=== PATIENT | male | born 1945 | race Caucasian/White ===

== ENCOUNTER 2019-01-07 21:40 | Inpatient (IN) | payer MEDICARE, OTHER ==
[~2019-01-07] VITALS: Ht 170.2 cm; Wt 54.4 kg
[~2019-01-07 21:40] MED LIST: CALCIUM CHLORIDE 1,000 MG/10 ML DISP.SYRIN ONE; EPINEPHrine SYRINGE 1 MG/10 ML SYRINGE ONE; SODIUM BICARB ADULT 8.4% 50 MEQ/50 ML DISP.SYRIN. ONE
[2019-01-07] MEDS ORDERED: MORPHINE SULFATE 10 MG/ML VIAL. IV ONE (22:15)
[2019-01-07 22:16] LABS: BASO # 0.1 x10^3/uL (0.0-0.2); BASO % 0 % (0-3); EOS # 0.1 x10^3/uL (0.0-0.7); EOS % 1 % (0-3); HEMATOCRIT 31.5 % (39.0-53.0); HEMOGLOBIN 10.6 g/dL (13.0-17.5); LYMPH # 0.8 x10^3/uL (1.0-4.8); LYMPH % 5 % (24-48); MEAN CORPUSCULAR HEMOGLOBIN 34 pg (25-35); MEAN CORPUSCULAR HGB CONC 34 g/dL (31-37); MEAN CORPUSCULAR VOLUME 100 fL (79-100); MONO # 1.1 x10^3/uL (0.0-1.1); MONO % 7 % (0-9); NEUT # 13.5 x10^3/uL (1.8-7.7); NEUT % 86 % (31-73); PLATELET COUNT 219 x10^3/uL (140-400); RED BLOOD COUNT 3.14 x10^6/uL (4.30-5.70); RED CELL DISTRIBUTION WIDTH 12.4 % (11.5-14.5); WHITE BLOOD COUNT 15.7 x10^3/uL (4.0-11.0)
[2019-01-07 22:25] LABS: CALCIUM 8.7 mg/dL (8.5-10.1); CREATININE 0.6 mg/dL (0.7-1.3); GFR 131.7; POTASSIUM 4.3 mmol/L (3.5-5.1)
[2019-01-07 22:26] LABS: PROTHROMBIN TIME PATIENT 13.6 SEC (11.7-14.0)
[2019-01-07 22:31] LABS: ALBUMIN 3.6 g/dL (3.4-5.0); ALBUMIN/GLOBULIN RATIO 0.9 (1.0-1.7); TOTAL BILIRUBIN 0.4 mg/dL (0.2-1.0); TOTAL PROTEIN 7.8 g/dL (6.4-8.2)
--- NOTE | 2019-01-07 22:36 | RAD ---
Exam: Chest one view INDICATION: Fall TECHNIQUE: Frontal view of the chest Comparisons: None FINDINGS: The cardiomediastinal silhouette and pulmonary vessels are within normal limits. The lung and pleural spaces are clear. IMPRESSION: No acute cardiopulmonary process. Electronically signed by: Krysta Weber MD (01/07/2019 10:33 PM) [facility]
--- NOTE | 2019-01-07 22:38 | RAD ---
Exam: Right shoulder 3 views INDICATION: Fall TECHNIQUE: Frontal view of the right shoulder with internal and external rotation with transscapular Y view. Comparisons: None FINDINGS: Bone mineralization is normal. No acute or healed fractures. Soft tissues are unremarkable. Joint spaces are well-maintained. IMPRESSION: No acute osseous abnormality. Electronically signed by: Krysta Weber MD (01/07/2019 10:35 PM) [facility]
--- NOTE | 2019-01-07 22:39 | RAD ---
Exam: Right hip 2 views with pelvis INDICATION: Fall TECHNIQUE: Frontal view of the pelvis with frog-leg lateral view of the right hip Comparisons: None FINDINGS: There is a obliquely oriented fracture through the proximal right femoral diaphysis. Diffuse osteopenia. Joint spaces are well-maintained. Soft tissues are unremarkable. IMPRESSION: Obliquely oriented fracture through the proximal right femoral diaphysis. Electronically signed by: Krysta Weber MD (01/07/2019 10:36 PM) [facility]
[2019-01-07 22:43] LABS: % BANDS 4 % (0-9); % BASOS 2 % (0-3); % LYMPHS 8 % (24-48); % MONOS 9 % (0-10); % SEGS 77 % (35-66); PLATELET CLUMP PRESENT; PLT ESTIMATE ADEQUATE (ADEQUATE); TOXIC VACUOLATION SLIGHT
--- NOTE | 2019-01-07 23:03 | PHYS DOC ---
Past Medical History Past Medical History: COPD, Hypertension (AGNES HINTON APRN) Past Surgical History: Other Additional Past Surgical Histo: UNKNOWN (AGNES HINTON APRN) Alcohol Use: Occasionally Drug Use: None (AGNES HINTON APRN) Attending Signature I have participated in the care of this patient and I have reviewed and agree with all pertinent clinical information above including history, exam, and recommendations. (RAMON VAZQUEZ MD) Adult General Chief Complaint Chief Complaint: MECHANICAL FALL HPI HPI Patient is a 73 year old male with history of COPD and oxygen 2 L, hypertension, who presents today complaining of moderate pain to the right hip that began after he fell down. Family reports he was playing to walk down some steps when he fell. Patient denies any loss of consciousness. Denies hitting his head on the ground. He describes the pain as sharp and constant worse on touching or moving his right lower extremity. (AGNES HINTON APRN) Review of Systems Review of Systems Constitutional: Denies fever or chills [] Eyes: Denies change in visual acuity, redness, or eye pain [] HENT: Denies nasal congestion or sore throat [] Respiratory: Denies cough or shortness of breath [] Cardiovascular: No additional information not addressed in HPI [] GI: Denies abdominal pain, nausea, vomiting, bloody stools or diarrhea [] : Denies dysuria or hematuria [] Musculoskeletal: Reports right hip pain Integument: Denies rash or skin lesions [] Neurologic: Denies headache, focal weakness or sensory changes [] All other systems were reviewed and found to be within normal limits, except as documented in this note. (AGNES HINTON APRN) Current Medications Current Medications Current Medications Medications (Trade) Dose Ordered Sig/Cecille Start Time Stop Time Status Last Admin Dose Admin Morphine Sulfate (Morphine Sulfate) 5 mg 1X ONCE 01/07/19 22:15 01/07/19 22:16 DC 01/07/19 22:31 5 MG (RAMON VAZQUEZ MD) Allergies Allergies Allergies Coded Allergies Type Severity Reaction Last Updated Verified Penicillins Allergy Unknown 01/07/19 Yes peach Allergy Unknown 01/07/19 Yes walnut Allergy Unknown 01/07/19 Yes (RAMON VAZQUEZ MD) Physical Exam Physical Exam Constitutional: Thin appearing patient in no acute distress, non-toxic appearance. [] HENT: Normocephalic, bilateral external ears normal, oropharynx moist, no oral exudates, nose normal. [] Eyes: PERRLA, EOMI, conjunctiva normal, no discharge. [] Neck: Normal range of motion, no tenderness, supple, no stridor. [] Cardiovascular:Heart rate regular rhythm, no murmur [] Lungs & Thorax: Oxygen 2 L on. Bilateral breath sounds clear to auscultation [] Abdomen: Bowel sounds normal, soft, no tenderness, no masses, no pulsatile mas ses. [] Skin: Warm, dry, no erythema, no rash. [] Back: No tenderness, no CVA tenderness. [] Extremities: Right hip is obviously deformed, the right leg is shortened, there is tenderness on palpation of the right proximal hip. Limited range of motion to the right hip due to pain. Full range of motion to the right toes. +2 right pedal pulse. Cap refill less than 2 seconds the right toes. Neurologic: Alert and oriented X 3, normal motor function, normal sensory function, no focal deficits noted. [] Psychologic: Affect normal, judgement normal, mood normal. [] (AGNES HINTON APRN) Current Patient Data Vital Signs Vital Signs Date Time Temp Pulse Resp B/P (MAP) Pulse Ox O2 Delivery O2 Flow Rate FiO2 01/07/19 22:53 106 18 97 01/07/19 22:31 Nasal Cannula 01/07/19 21:42 98.4 123/57 (79) 98.4 (RAMON VAZQUEZ MD) Lab Values Laboratory Tests Test 01/07/19 22:07 White Blood Count 15.7 x10^3/uL (4.0-11.0) H Red Blood Count 3.14 x10^6/uL (4.30-5.70) L Hemoglobin 10.6 g/dL (13.0-17.5) L Hematocrit 31.5 % (39.0-53.0) L Mean Corpuscular Volume 100 fL (79-100) Mean Corpuscular Hemoglobin 34 pg (25-35) Mean Corpuscular Hemoglobin Concent 34 g/dL (31-37) Red Cell Distribution Width 12.4 % (11.5-14.5) Platelet Count 219 x10^3/uL (140-400) Neutrophils (%) (Auto) 86 % (31-73) H Lymphocytes (%) (Auto) 5 % (24-48) L Monocytes (%) (Auto) 7 % (0-9) Eosinophils (%) (Auto) 1 % (0-3) Basophils (%) (Auto) 0 % (0-3) Neutrophils # (Auto) 13.5 x10^3/uL (1.8-7.7) H Lymphocytes # (Auto) 0.8 x10^3/uL (1.0-4.8) L Monocytes # (Auto) 1.1 x10^3/uL (0.0-1.1) Eosinophils # (Auto) 0.1 x10^3/uL (0.0-0.7) Basophils # (Auto) 0.1 x10^3/uL (0.0-0.2) Segmented Neutrophils % 77 % (35-66) H Band Neutrophils % 4 % (0-9) Lymphocytes % 8 % (24-48) L Monocytes % 9 % (0-10) Basophils % 2 % (0-3) Toxic Vacuolation Slight Platelet Estimate Adequate (ADEQUATE) Platelet Clumps, EDTA Present Prothrombin Time 13.6 SEC (11.7-14.0) Prothrombin Time INR 1.1 (0.8-1.1) Activated Partial Thromboplast Time 31 SEC (24-38) Sodium Level 134 mmol/L (136-145) L Potassium Level 4.3 mmol/L (3.5-5.1) Chloride Level 95 mmol/L (98-107) L Carbon Dioxide Level 30 mmol/L (21-32) Anion Gap 9 (6-14) Blood Urea Nitrogen 8 mg/dL (8-26) Creatinine 0.6 mg/dL (0.7-1.3) L Estimated GFR (Cockcroft-Gault) 131.7 BUN/Creatinine Ratio 13 (6-20) Glucose Level 118 mg/dL (70-99) H Calcium Level 8.7 mg/dL (8.5-10.1) Total Bilirubin 0.4 mg/dL (0.2-1.0) Aspartate Amino Transferase (AST) 21 U/L (15-37) Alanine Aminotransferase (ALT) 31 U/L (16-63) Alkaline Phosphatase 79 U/L (46-116) Total Protein 7.8 g/dL (6.4-8.2) Albumin 3.6 g/dL (3.4-5.0) Albumin/Globulin Ratio 0.9 (1.0-1.7) L Laboratory Tests 01/07/19 22:07 Laboratory Tests 01/07/19 22:07 (RAMON VAZQUEZ MD) EKG EKG [] (AGNES HINTON APRN) Radiology/Procedures Radiology/Procedures []PROCEDURE: CHEST AP ONLY Exam: Chest one view INDICATION: Fall TECHNIQUE: Frontal view of the chest Comparisons: None FINDINGS: The cardiomediastinal silhouette and pulmonary vessels are within normal limits. The lung and pleural spaces are clear. IMPRESSION: No acute cardiopulmonary process. Electronically signed by: Krysta Whitaker MD (01/07/2019 10:33 PM) [facility] DICTATED and SIGNED BY: KRYSTA WHITAKER MD DATE: 01/07/192232 PROCEDURE: SHOULDER 2+V RIGHT Exam: Right shoulder 3 views INDICATION: Fall TECHNIQUE: Frontal view of the right shoulder with internal and external rotation with transscapular Y view. Comparisons: None FINDINGS: Bone mineralization is normal. No acute or healed fractures. Soft tissues are unremarkable. Joint spaces are well-maintained. IMPRESSION: No acute osseous abnormality. Electronically signed by: Krysta Whitaker MD (01/07/2019 10:35 PM) [facility] DICTATED and SIGNED BY: KRYSTA WHITAKER MD DATE: 01/07/192234 PROCEDURE: HIP RIGHT 2V WITH PELVIS Exam: Right hip 2 views with pelvis INDICATION: Fall TECHNIQUE: Frontal view of the pelvis with frog-leg lateral view of the right hip Comparisons: None FINDINGS: There is a obliquely oriented fracture through the proximal right femoral diaphysis. Diffuse osteopenia. Joint spaces are well-maintained. Soft tissues are unremarkable. IMPRESSION: Obliquely oriented fracture through the proximal right femoral diaphysis. Electronically signed by: Krysta Whitaker MD (01/07/2019 10:36 PM) [facility] DICTATED and SIGNED BY: KRYSTA WHITAKER MD DATE: 01/07/192235 (AGNES HINTON APRN) Course & Med Decision Making Course & Med Decision Making Pertinent Labs and Imaging studies reviewed. (See chart for details) This is a 73-year-old male patient presenting to the ED today with right hip pain status post falling couple minutes prior to coming to the ED. Right hip x- rays interpreted by radiologist were noted for-Obliquely oriented fracture through the proximal right femoral diaphysis. Spoke with Dr. Waller-he states patient will go through medical clearance tomorrow then hopefully have surgery the next day or 2 Patient was admitted under Dr. Vera, report will be given to him in the morning by Dr. Vazquez (AGNES HINTON APRN) Dragon Disclaimer Dragon Disclaimer This electronic medical record was generated, in whole or in part, using a voice recognition dictation system. (AGNES HINTON APRN) Departure Departure Impression: Primary Impression: Right femoral fracture Additional Impression: Fall Disposition: 09 ADMITTED INPATIENT Condition: STABLE Referrals: ABISAI LAURENT MD (PCP) Problem Qualifiers Primary Impression: Right femoral fracture Encounter type: initial encounter Femur location: proximal epiphysis Fracture type: closed Fracture alignment: nondisplaced Qualified Codes: S72.024A - Nondisplaced fracture of epiphysis (separation) (upper) of right femur, initial encounter for closed fracture Additional Impression: Fall Encounter type: initial encounter Qualified Codes: W19.XXXA - Unspecified fall, initial encounter AGNES HINTON APRN Jan 07, 2019 23:03 RAMON VAZQUEZ MD Jan 08, 2019 01:28
[2019-01-07] MEDS ORDERED: ONDANSETRON PF 4 MG/2 ML VIAL. IV PRN (23:30)
[2019-01-07] MEDS ORDERED: ACETAMINOPHEN 325 MG TABLET. PO PRN (23:30)
[2019-01-07 23:54] VITALS: BP 93/58
[2019-01-08] MEDS: MORPHINE SULFATE 4 MG/ML VIAL. IV PRN ×2 (00:26→09:56)
[2019-01-08 03:00] VITALS: BP 100/51
--- NOTE | 2019-01-08 03:33 | NUR ---
The patient, JOHN PAUL WILDER, 73 y/o, M admitted by NIMA ALLRED MD, was given written information regarding hospital policies, unit procedures and contact persons. Valuables were checked and admission questions answered by patient/spouse. Patient does not have current medication list- spouse asked to bring medications from home in order to update home medication list. Verbalized understanding. Currently uses [facility].
[2019-01-08 04:47] LABS: BASO % 0 % (0-3); EOS % 0 % (0-3); HEMATOCRIT 26.9 % (39.0-53.0); HEMOGLOBIN 9.1 g/dL (13.0-17.5); LYMPH # 0.6 x10^3/uL (1.0-4.8); LYMPH % 4 % (24-48); MEAN CORPUSCULAR HEMOGLOBIN 34 pg (25-35); MEAN CORPUSCULAR HGB CONC 34 g/dL (31-37); MEAN CORPUSCULAR VOLUME 101 fL (79-100); MONO # 1.3 x10^3/uL (0.0-1.1); MONO % 8 % (0-9); NEUT # 15.2 x10^3/uL (1.8-7.7); NEUT % 89 % (31-73); PLATELET COUNT 258 x10^3/uL (140-400); RED BLOOD COUNT 2.67 x10^6/uL (4.30-5.70); RED CELL DISTRIBUTION WIDTH 12.1 % (11.5-14.5); WHITE BLOOD COUNT 17.2 x10^3/uL (4.0-11.0)
[2019-01-08 05:03] LABS: CREATININE 1.4 mg/dL (0.7-1.3); GFR 49.5; POTASSIUM 5.1 mmol/L (3.5-5.1)
[2019-01-08 07:00] VITALS: BP 110/63
--- NOTE | 2019-01-08 08:02 | NUR ---
Pt daughter informed that he is an avid beer drinker. Discreetness is requested. P drinks approximately 8 beers a day, according to daughter. That taken into account prior to surgery.
[2019-01-08] MEDS ORDERED: oxyCODONE/APAP 5/325 1 TAB TABLET PO PRN (08:45)
--- NOTE | 2019-01-08 08:54 | PDOC1 ---
History and Physical Date of Admission Date of Admission DATE: 01/08/19 TIME: 08:51 Source Source: Chart review, Patient History of Present Illness History of Present Illness Mr. Nesbitt, is a 73 year old male admit with hip pain, he fell in his garage last night, this AM, he feels his pain is much better, and he has no complaint currently. pain last night was moderate, 7/10. 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 Past Medical History Cardiovascular: HTN Pulmonary: COPD GI: No pertinent hx Heme/Onc: No pertinent hx Endocrine: No pertinent hx Dermatology: No pertinent hx Family History Family History: No Significant, Heart Disease Social History Smoke: Quit ALCOHOL: heavy Drugs: None Current Problem List Problem List Problems Medical Problems: (1) Fall Status: Acute (2) Right femoral fracture Status: Acute Current Medications Current Medications Current Medications Morphine Sulfate (Morphine Sulfate) 5 mg 1X ONCE IV Last administered on 01/07/19at 22:31; Start 01/07/19 at 22:15; Stop 01/07/19 at 22:16; Status DC Ondansetron HCl (Zofran) 4 mg PRN Q8HRS PRN IV NAUSEA/VOMITING Last administered on 01/08/19at 08:42; Start 01/07/19 at 23:30; Stop 01/08/19 at 23:29 Morphine Sulfate (Morphine Sulfate) 4 mg PRN Q2HR PRN IV PAIN Last administered on 01/08/19at 00:26; Start 01/07/19 at 23:30; Stop 01/08/19 at 23:29 Acetaminophen (Tylenol) 650 mg PRN Q4HRS PRN PO FEVER; Start 01/07/19 at 23:30; Stop 01/08/19 at 23:29 Sodium Chloride 1,000 ml @ 100 mls/hr 1X ONCE IV Last administered on 01/08/19at 08:44; Start 01/08/19 at 09:00; Stop 01/08/19 at 18:59 Sodium Chloride 500 ml @ 500 mls/hr 1X ONCE IV ; Start 01/08/19 at 09:00; Stop 01/08/19 at 09:59; Status Cancel Multivitamins 10 ml/Thiamine HCl 100 mg/Folic Acid 1 mg/Sodium Chloride 1,011.2 ml @ 1,000.088 mls/hr 1X ONCE IV ; Start 01/08/19 at 09:00; Stop 01/08/19 at 10:00 Folic Acid (Folic Acid) 1 mg DAILY PO ; Start 01/09/19 at 09:00 Thiamine Mononitrate (Vitamin B-1) 100 mg DAILY PO ; Start 01/09/19 at 09:00 Lorazepam (Ativan Inj) 2 mg PRN Q1HR PRN IV For CIWA 8-14; Start 01/08/19 at 09:00 Lorazepam (Ativan Inj) 4 mg PRN Q1HR PRN IV For CIWA 15 or greater; Start 01/08/19 at 09:00 Albuterol/ Ipratropium (Duoneb) 3 ml RTQID NEB ; Start 01/08/19 at 09:00 Albuterol Sulfate (Ventolin Neb Soln) 2.5 mg PRN QID PRN NEB SHORTNESS OF BREATH; Start 01/08/19 at 09:00 Oxycodone/ Acetaminophen (Percocet 5/325) 1 tab PRN Q4HRS PRN PO PAIN; Start 01/08/19 at 08:45 Allergies Allergies: Coded Allergies: Penicillins (Verified Allergy, Unknown, 01/07/19) peach (Verified Allergy, Unknown, 01/07/19) walnut (Verified Allergy, Unknown, 01/07/19) ROS General: No: Chills, Night Sweats, Fatigue, Malaise, Appetite, Other PSYCHOLOGICAL ROS: YES: Sleep disturbances; No: Anxiety, Behavioral Disorder, Concentration difficultie, Decreased libido, Depression, Disorientation, Hallucinations, Hostility, Irritablity, Memory difficulties, Mood Swings, Obsessive thoughts, Other Eyes: No Blurry vision, No Decreased vision, No Double vision, No Dry eyes, No Excessive tearing, No Eye Pain, No Itchy Eyes, No Loss of vision, No Photophobia, No Scotomata, No Uses contacts, No Uses glasses, No Other HEENT: No: Heacaches, Visual Changes, Hearing change, Nasal congestion, Nasal discharge, Oral lesions, Sinus pain, Sore Throat, Epistaxis, Sneezing, Snoring, Tinnitus, Vertigo, Vocal changes, Other Respiratory: YES: SOB with excertion; No: Cough, Hemoptysis, Orthopnea, Pleuritic Pain, Shortness of breath, Sputum Changes, Stridor, Tachypnea, Wheezing, Other Cardiovascular: No Chest Pain, No Palpitations, No Orthopnea, No Paroxysmal Noc. Dyspnea, No Edema, No Lt Headedness, No Other Gastrointestinal: Yes Nausea; No Vomiting, No Abdominal Pain, No Diarrhea, No Constipation, No Melena, No Hematochezia, No Other Genitourinary: No Dysuria, No Frequency, No Incontinence, No Hematuria, No Retention, No Discharge, No Urgency, No Pain, No Flank Pain, No Other, No , No , No , No , No , No , No Musculoskeletal: Yes Joint Pain, Yes Joint Stiffness Neurological: No Behavorial Changes, No Bowel/Bladder ControlChng, No Confusion, No Dizziness, No Gait Disturbance, No Headaches, No Impaired Coord/balance, No Memory Loss, No Numbness/Tingling, No Seizures, No Speech Problems, No Tremors, No Visual Changes, No Weakness, No Other Skin: Yes Dry Skin; No Eczema, No Hair Changes, No Lumps, No Mole Changes, No Mottling, No Nail Changes, No Pruritus, No Rash, No Skin Lesion Changes, No Other, No Acne Physical Exam Physical Exam very thin and frail appearance, muscle wasting of arms and hands General: Alert, Oriented X3, Cooperative, No acute distress HEENT: Atraumatic, PERRLA, Mucous membr. moist/pink Lungs: Normal air movement Abdomen: Normal bowel sounds, Soft Extremities: No clubbing, Normal pulses Neuro: Sensation intact Psych/Mental Status: Mood NL Vitals Vitals Vital Signs Date Time Temp Pulse Resp B/P (MAP) Pulse Ox O2 Delivery O2 Flow Rate FiO2 01/08/19 03:38 Nasal Cannula 4.0 01/08/19 03:00 97.7 111 18 100/51 (67) 99 97.7 Labs Labs Laboratory Tests Test 01/07/19 22:07 01/08/19 04:00 White Blood Count 15.7 x10^3/uL (4.0-11.0) 17.2 x10^3/uL (4.0-11.0) Red Blood Count 3.14 x10^6/uL (4.30-5.70) 2.67 x10^6/uL (4.30-5.70) Hemoglobin 10.6 g/dL (13.0-17.5) 9.1 g/dL (13.0-17.5) Hematocrit 31.5 % (39.0-53.0) 26.9 % (39.0-53.0) Mean Corpuscular Volume 100 fL (79-100) 101 fL (79-100) Mean Corpuscular Hemoglobin 34 pg (25-35) 34 pg (25-35) Mean Corpuscular Hemoglobin Concent 34 g/dL (31-37) 34 g/dL (31-37) Red Cell Distribution Width 12.4 % (11.5-14.5) 12.1 % (11.5-14.5) Platelet Count 219 x10^3/uL (140-400) 258 x10^3/uL (140-400) Neutrophils (%) (Auto) 86 % (31-73) 89 % (31-73) Lymphocytes (%) (Auto) 5 % (24-48) 4 % (24-48) Monocytes (%) (Auto) 7 % (0-9) 8 % (0-9) Eosinophils (%) (Auto) 1 % (0-3) 0 % (0-3) Basophils (%) (Auto) 0 % (0-3) 0 % (0-3) Neutrophils # (Auto) 13.5 x10^3/uL (1.8-7.7) 15.2 x10^3/uL (1.8-7.7) Lymphocytes # (Auto) 0.8 x10^3/uL (1.0-4.8) 0.6 x10^3/uL (1.0-4.8) Monocytes # (Auto) 1.1 x10^3/uL (0.0-1.1) 1.3 x10^3/uL (0.0-1.1) Eosinophils # (Auto) 0.1 x10^3/uL (0.0-0.7) 0.0 x10^3/uL (0.0-0.7) Basophils # (Auto) 0.1 x10^3/uL (0.0-0.2) 0.0 x10^3/uL (0.0-0.2) Segmented Neutrophils % 77 % (35-66) Band Neutrophils % 4 % (0-9) Lymphocytes % 8 % (24-48) Monocytes % 9 % (0-10) Basophils % 2 % (0-3) Toxic Vacuolation Slight Platelet Estimate Adequate (ADEQUATE) Platelet Clumps, EDTA Present Prothrombin Time 13.6 SEC (11.7-14.0) Prothromb Time International Ratio 1.1 (0.8-1.1) Activated Partial Thromboplast Time 31 SEC (24-38) Sodium Level 134 mmol/L (136-145) 135 mmol/L (136-145) Potassium Level 4.3 mmol/L (3.5-5.1) 5.1 mmol/L (3.5-5.1) Chloride Level 95 mmol/L (98-107) 97 mmol/L (98-107) Carbon Dioxide Level 30 mmol/L (21-32) 27 mmol/L (21-32) Anion Gap 9 (6-14) 11 (6-14) Blood Urea Nitrogen 8 mg/dL (8-26) 12 mg/dL (8-26) Creatinine 0.6 mg/dL (0.7-1.3) 1.4 mg/dL (0.7-1.3) Estimated GFR (Cockcroft-Gault) 131.7 49.5 BUN/Creatinine Ratio 13 (6-20) Glucose Level 118 mg/dL (70-99) 101 mg/dL (70-99) Calcium Level 8.7 mg/dL (8.5-10.1) 9.0 mg/dL (8.5-10.1) Total Bilirubin 0.4 mg/dL (0.2-1.0) Aspartate Amino Transf (AST/SGOT) 21 U/L (15-37) Alanine Aminotransferase (ALT/SGPT) 31 U/L (16-63) Alkaline Phosphatase 79 U/L (46-116) Total Protein 7.8 g/dL (6.4-8.2) Albumin 3.6 g/dL (3.4-5.0) Albumin/Globulin Ratio 0.9 (1.0-1.7) Laboratory Tests Test 01/07/19 22:07 01/08/19 04:00 White Blood Count 15.7 x10^3/uL (4.0-11.0) 17.2 x10^3/uL (4.0-11.0) Red Blood Count 3.14 x10^6/uL (4.30-5.70) 2.67 x10^6/uL (4.30-5.70) Hemoglobin 10.6 g/dL (13.0-17.5) 9.1 g/dL (13.0-17.5) Hematocrit 31.5 % (39.0-53.0) 26.9 % (39.0-53.0) Mean Corpuscular Volume 100 fL (79-100) 101 fL (79-100) Mean Corpuscular Hemoglobin 34 pg (25-35) 34 pg (25-35) Mean Corpuscular Hemoglobin Concent 34 g/dL (31-37) 34 g/dL (31-37) Red Cell Distribution Width 12.4 % (11.5-14.5) 12.1 % (11.5-14.5) Platelet Count 219 x10^3/uL (140-400) 258 x10^3/uL (140-400) Neutrophils (%) (Auto) 86 % (31-73) 89 % (31-73) Lymphocytes (%) (Auto) 5 % (24-48) 4 % (24-48) Monocytes (%) (Auto) 7 % (0-9) 8 % (0-9) Eosinophils (%) (Auto) 1 % (0-3) 0 % (0-3) Basophils (%) (Auto) 0 % (0-3) 0 % (0-3) Neutrophils # (Auto) 13.5 x10^3/uL (1.8-7.7) 15.2 x10^3/uL (1.8-7.7) Lymphocytes # (Auto) 0.8 x10^3/uL (1.0-4.8) 0.6 x10^3/uL (1.0-4.8) Monocytes # (Auto) 1.1 x10^3/uL (0.0-1.1) 1.3 x10^3/uL (0.0-1.1) Eosinophils # (Auto) 0.1 x10^3/uL (0.0-0.7) 0.0 x10^3/uL (0.0-0.7) Basophils # (Auto) 0.1 x10^3/uL (0.0-0.2) 0.0 x10^3/uL (0.0-0.2) Segmented Neutrophils % 77 % (35-66) Band Neutrophils % 4 % (0-9) Lymphocytes % 8 % (24-48) Monocytes % 9 % (0-10) Basophils % 2 % (0-3) Toxic Vacuolation Slight Platelet Estimate Adequate (ADEQUATE) Platelet Clumps, EDTA Present Prothrombin Time 13.6 SEC (11.7-14.0) Prothromb Time International Ratio 1.1 (0.8-1.1) Activated Partial Thromboplast Time 31 SEC (24-38) Sodium Level 134 mmol/L (136-145) 135 mmol/L (136-145) Potassium Level 4.3 mmol/L (3.5-5.1) 5.1 mmol/L (3.5-5.1) Chloride Level 95 mmol/L (98-107) 97 mmol/L (98-107) Carbon Dioxide Level 30 mmol/L (21-32) 27 mmol/L (21-32) Anion Gap 9 (6-14) 11 (6-14) Blood Urea Nitrogen 8 mg/dL (8-26) 12 mg/dL (8-26) Creatinine 0.6 mg/dL (0.7-1.3) 1.4 mg/dL (0.7-1.3) Estimated GFR (Cockcroft-Gault) 131.7 49.5 BUN/Creatinine Ratio 13 (6-20) Glucose Level 118 mg/dL (70-99) 101 mg/dL (70-99) Calcium Level 8.7 mg/dL (8.5-10.1) 9.0 mg/dL (8.5-10.1) Total Bilirubin 0.4 mg/dL (0.2-1.0) Aspartate Amino Transf (AST/SGOT) 21 U/L (15-37) Alanine Aminotransferase (ALT/SGPT) 31 U/L (16-63) Alkaline Phosphatase 79 U/L (46-116) Total Protein 7.8 g/dL (6.4-8.2) Albumin 3.6 g/dL (3.4-5.0) Albumin/Globulin Ratio 0.9 (1.0-1.7) VTE Prophylaxis Ordered VTE Prophylaxis Devices: Yes VTE Pharmacological Prophylaxi: No Assessment/Plan Assessment/Plan Fall, left hip pain, new fracture acute renal failure, ATN, give aggressive IV fluids, check renal US, and renal lytes ETOH abuse, 6-8 beers a day, will give banana bag, have CIWA protocol avail 20 beat run of wide complex tachy, consult cardio SIRS, microcytic anemia but due to hip pain and ETOH abuse underweight, BMI 17.4 COPD with chronic hypoxia, on 2liters at baseline NIMA ALLRED MD Jan 08, 2019 08:54
[2019-01-08] MEDS ORDERED: MULTIVIT INFUSN,ADULT 4,VIT K 10 ML, THIAMINE INJ 100 MG, FOLIC ACID INJ 1 MG in IV NOR... IV ONE (09:00)
[2019-01-08] MEDS ORDERED: ALBUTEROL SULFATE 2.5 MG/3 ML NEBU. NEB PRN (09:00)
[2019-01-08] MEDS: IPRATRPIUM/ALBUTEROL 0.5/2.5MG 3 ML NEBU. NEB SCH ×4 (09:00→19:52)
[2019-01-08] MEDS ORDERED: IV NORMAL SALINE 1000ML BAG 1,000 ML IV ONE (09:00)
[2019-01-08] MEDS ORDERED: IV NORMAL SALINE 500ML BAG 500 ML IV ONE (09:00)
[2019-01-08 11:00] VITALS: BP 93/53
--- NOTE | 2019-01-08 11:20 | EKG ---
[facility] [address] [place] [address] Test Date: 2019-01-08 Test Time: 11:05:57 Pat Name: JOHN PAUL WILDER Department: Room: 4 1 Gender: M Box Tender: CANDICE : 1945 Requested By: NIMA ALLRED Order Number: [id number] Reading MD: Measurements Intervals Purvis Rate: 111 P: 90 RI: 124 QRS: -75 QRSD: 78 T: 77 QT: 312 QTc: 427 Interpretive Statements SINUS TACHYCARDIA ABNORMAL LEFT AXIS DEVIATION R-S TRANSITION ZONE IN V LEADS DISPLACED TO THE RIGHT LEFT ANTERIOR FASCICULAR BLOCK T ABNORMALITY IN HIGH LATERAL LEADS ABNORMAL ECG RI6.02 No previous ECG available for comparison
[2019-01-08 12:30] VITALS: BP 93/52
--- NOTE | 2019-01-08 12:34 | PDOC2 ---
CARDIOLOGY CONSULT NOTE CHEIF COMPLAINT: Fall at home and cardiology asked to see the patient due to arrhythmia HPI: 73 old man with past medical history of hypertension and COPD who presented to the hospital after a fall. His daughter is at bedside and most of the history is obtained from her as the patient had just received 2 mg of IV Ativan and was not easily arousable. According to the daughter the patient at baseline is able to ambulate around the house but is mostly sedentary due to his COPD. He probably does not have any prior history of cardiac issues. PMHX: As noted above SOCHX: He drinks apparently 6-8 beers nightly. He does not smoke currently. He lives at home with his . FAMHX: Noncontributory CURRENT MEDS: Current Medications Medications (Trade) Dose Ordered Sig/Cecille Route PRN Reason Start Time Stop Time Status Last Admin Dose Admin Morphine Sulfate (Morphine Sulfate) 5 mg 1X ONCE IV 01/07/19 22:15 01/07/19 22:16 DC 01/07/19 22:31 Ondansetron HCl (Zofran) 4 mg PRN Q8HRS PRN IV NAUSEA/VOMITING 01/07/19 23:30 01/08/19 23:29 01/08/19 08:42 Morphine Sulfate (Morphine Sulfate) 4 mg PRN Q2HR PRN IV PAIN 01/07/19 23:30 01/08/19 23:29 01/08/19 09:56 Sodium Chloride 1,000 ml @ 100 mls/hr 1X ONCE IV 01/08/19 09:00 01/08/19 18:59 01/08/19 08:44 Multivitamins 10 ml/Thiamine HCl 100 mg/Folic Acid 1 mg/Sodium Chloride 1,011.2 ml @ 1,000.088 mls/hr 1X ONCE IV 01/08/19 09:00 01/08/19 10:00 DC 01/08/19 10:06 Lorazepam (Ativan Inj) 2 mg PRN Q1HR PRN IV For CIWA 8-14 01/08/19 09:00 01/08/19 09:59 ALLERGIES: Allergies Coded Allergies Type Severity Reaction Last Updated Verified Penicillins Allergy Unknown 01/07/19 Yes peach Allergy Unknown 01/07/19 Yes walnut Allergy Unknown 01/07/19 Yes ROS: Unable to be obtained due to the patient's somnolence PHYSICAL EXAM: Vital Signs/I&O: Vital Signs Date Time Temp Pulse Resp B/P (MAP) Pulse Ox O2 Delivery O2 Flow Rate FiO2 01/08/19 12:12 97 Nasal Cannula 3.0 01/08/19 11:00 98.7 113 16 93/53 (66) 98.7 I & O 01/07/19 01/07/19 01/08/19 15:00 23:00 07:00 Intake Total 0 ml Balance 0 ml Physical Exam: On examination he appears to be frail and emaciated He is nonresponsive to verbal stimuli but mildly response to sternal rub Lungs are with decreased breath sounds. No wheezing. He is barrel chested. Heart tones are distant but regular No significant edema present Soft abdomen. DIAGNOSTIC TESTING: Telemetry reviewed and notable for sinus tachycardia with paroxysmal SVT. No obvious ischemic findings noted on EKG which reveals sinus rhythm with a prior inferior infarct Lab Laboratory Tests Test 01/07/19 22:07 01/08/19 04:00 White Blood Count 15.7 x10^3/uL (4.0-11.0) H 17.2 x10^3/uL (4.0-11.0) H Red Blood Count 3.14 x10^6/uL (4.30-5.70) L 2.67 x10^6/uL (4.30-5.70) L Hemoglobin 10.6 g/dL (13.0-17.5) L 9.1 g/dL (13.0-17.5) L Hematocrit 31.5 % (39.0-53.0) L 26.9 % (39.0-53.0) L Mean Corpuscular Volume 100 fL (79-100) 101 fL (79-100) H Mean Corpuscular Hemoglobin 34 pg (25-35) 34 pg (25-35) Mean Corpuscular Hemoglobin Concent 34 g/dL (31-37) 34 g/dL (31-37) Red Cell Distribution Width 12.4 % (11.5-14.5) 12.1 % (11.5-14.5) Platelet Count 219 x10^3/uL (140-400) 258 x10^3/uL (140-400) Neutrophils (%) (Auto) 86 % (31-73) H 89 % (31-73) H Lymphocytes (%) (Auto) 5 % (24-48) L 4 % (24-48) L Monocytes (%) (Auto) 7 % (0-9) 8 % (0-9) Eosinophils (%) (Auto) 1 % (0-3) 0 % (0-3) Basophils (%) (Auto) 0 % (0-3) 0 % (0-3) Neutrophils # (Auto) 13.5 x10^3/uL (1.8-7.7) H 15.2 x10^3/uL (1.8-7.7) H Lymphocytes # (Auto) 0.8 x10^3/uL (1.0-4.8) L 0.6 x10^3/uL (1.0-4.8) L Monocytes # (Auto) 1.1 x10^3/uL (0.0-1.1) 1.3 x10^3/uL (0.0-1.1) H Eosinophils # (Auto) 0.1 x10^3/uL (0.0-0.7) 0.0 x10^3/uL (0.0-0.7) Basophils # (Auto) 0.1 x10^3/uL (0.0-0.2) 0.0 x10^3/uL (0.0-0.2) Segmented Neutrophils % 77 % (35-66) H Band Neutrophils % 4 % (0-9) Lymphocytes % 8 % (24-48) L Monocytes % 9 % (0-10) Basophils % 2 % (0-3) Toxic Vacuolation Slight Platelet Estimate Adequate (ADEQUATE) Platelet Clumps, EDTA Present Prothrombin Time 13.6 SEC (11.7-14.0) Prothromb Time International Ratio 1.1 (0.8-1.1) Activated Partial Thromboplast Time 31 SEC (24-38) Sodium Level 134 mmol/L (136-145) L 135 mmol/L (136-145) L Potassium Level 4.3 mmol/L (3.5-5.1) 5.1 mmol/L (3.5-5.1) Chloride Level 95 mmol/L (98-107) L 97 mmol/L (98-107) L Carbon Dioxide Level 30 mmol/L (21-32) 27 mmol/L (21-32) Anion Gap 9 (6-14) 11 (6-14) Blood Urea Nitrogen 8 mg/dL (8-26) 12 mg/dL (8-26) Creatinine 0.6 mg/dL (0.7-1.3) L 1.4 mg/dL (0.7-1.3) H Estimated GFR (Cockcroft-Gault) 131.7 49.5 BUN/Creatinine Ratio 13 (6-20) Glucose Level 118 mg/dL (70-99) H 101 mg/dL (70-99) H Calcium Level 8.7 mg/dL (8.5-10.1) 9.0 mg/dL (8.5-10.1) Total Bilirubin 0.4 mg/dL (0.2-1.0) Aspartate Amino Transf (AST/SGOT) 21 U/L (15-37) Alkaline Phosphatase 79 U/L (46-116) Total Protein 7.8 g/dL (6.4-8.2) Albumin 3.6 g/dL (3.4-5.0) Albumin/Globulin Ratio 0.9 (1.0-1.7) L Laboratory Tests 01/08/19 04:00 ASSESSMENT: 1. Paroxysmal SVT in the setting of COPD and pain/fall 2. Hypertension PLAN: 1. We will obtain an echocardiogram to rule out any structural heart disease and evaluate for cor pulmonale. 2. Supportive care for now. ORLANDO SINGH MD Jan 08, 2019 12:34
[2019-01-08 15:55] VITALS: BP 102/58
--- NOTE | 2019-01-08 16:11 | NUR ---
Pt stated he's on amlodipine, however he only gets stiolpo-inhaler 2 puffs daily from their pharmacy.
--- NOTE | 2019-01-08 17:22 | RAD ---
Renal ultrasound complete: Reason for examination: Acute renal failure. Right kidney measures 11.5 x 4.2 x 4 cm in greatest dimension. There does appear to be some cortical thinning. No focal mass or hydronephrosis is seen. There is increased resistive index of 0.77. The left kidney is not optimally visualized due to patient being unable to roll because of left hip fracture. The left kidney appears to measure approximately 9 x 3.6 x 4.3 cm in greatest dimension no gross renal mass or hydronephrosis is evident. The bladder shows some mild wall thickening with a prevoid volume of 145.9 cc. Bladder mass is not seen. Weak bilateral ureteral jets were identified. The abdominal aorta is normal in course and caliber measuring 1.9 cm in greatest dimension proximally. The inferior vena cava is patent proximally. IMPRESSION: Right renal cortical thinning with increased resistive index of 0.77. Limited evaluation of the left kidney due to left hip fracture and inability to roll the patient. No hydronephrosis seen of either kidney. Weak bilateral ureteral jets were identified. Mild wall thickening in the bladder but no bladder masses are evident. Electronically signed by: Mildred Barclay MD (01/08/2019 5:19 PM) [facility]
[2019-01-08 18:31] LABS: BILIRUBIN,URINE NEGATIVE (NEG); COLOR,URINE YELLOW; NITRITE,URINE NEGATIVE (NEG); PH,URINE 6.5; PROTEIN,URINE NEGATIVE (NEG-TRACE); UROBILINOGEN,URINE 0.2 mg/dL (0.2 mg/dL)
[2019-01-08 18:38] LABS: CLARITY,URINE CLEAR
[2019-01-08 18:40] LABS: BACTERIA,URINE 0 /HPF (0-FEW); RBC,URINE OCC /HPF (0-2); SQUAMOUS EPITHELIAL CELL,UR FEW /LPF; WBC,URINE 0 /HPF (0-4)
[2019-01-08] MEDS ORDERED: ESCITALOPRAM OX10 MG PO (18:49)
[2019-01-08] MEDS ORDERED: AMLO5TAB10 PO (18:49)
[2019-01-08] MEDS ORDERED: TIOT4MIS3 IH (18:50)
[2019-01-08 19:31] VITALS: BP 112/57
--- NOTE | 2019-01-09 01:40 | NUR ---
Patient laboratory monitor showed bradycardia and patient was checked on, upon checking it was told to this health underwriter that patient was unresponsive and a code blue was called at 2247.( Please refer to code record). Patient was announced at 2330. patients was present when code was initiated. Doctor Christopher was notified.
--- NOTE | 2019-01-09 01:44 | NUR ---
This specification writer will go over patients belongings with family and care for transportation of [place] [facility] [place]
--- NOTE | 2019-01-09 03:27 | VNOTE ---
CALL BACK NOTE CALL BACK Called to floor for code blue on 6th floor. Arrived with patient being bagged and CPR in progress. Patient subsequently intubated with 7.5 ETT, color change per CO2 detector, equal breath sounds appreciated. ACLS protocol continued. Please see CODE BLUE recording for ACLS protocol details. Despite resuscitative efforts, patient . Mother was outside of room and was updated of patient's . RAMON VAZQUEZ MD Jan 09, 2019 03:27
--- NOTE | 2019-01-09 05:16 | NUR ---
previous note of time of stating 2330 is incorrect. time of was 2306, patients primary doctor was notified at 2330
[2019-01-09] MEDS ORDERED: FOLIC ACID 1 MG TABLET. PO SCH (09:00)
[2019-01-09] MEDS ORDERED: THIAMINE 100 MG TABLET. PO SCH (09:00)
--- NOTE | 2019-01-09 09:41 | PDOC3 ---
Discharge Summary Visit Information Date of Admission: Jan 07, 2019 Date of Discharge: Jan 09, 2019 Final Diagnosis , wide complex tachycardia, earlier, then bradycardia alcohol withdrawl, w/ delirium Fall, left hip pain, new fracture acute renal failure, ATN, ETOH abuse, 6-8 beers a day, given banana bag, CIWA protocol 20 beat run of wide complex tachy, SIRS, hip fracture, poss EtOH withdrawl microcytic anemia but due to hip pain and ETOH abuse underweight, BMI 17.4 COPD with chronic hypoxia, on 2liters at baseline Problems Medical Problems: (1) Fall Status: Acute (2) Right femoral fracture Status: Acute Brief Hospital Course Allergies Allergies Coded Allergies Type Severity Reaction Last Updated Verified Penicillins Allergy Unknown 01/07/19 Yes peach Allergy Unknown 01/07/19 Yes walnut Allergy Unknown 01/07/19 Yes Vital Signs Vital Signs Date Time Temp Pulse Resp B/P (MAP) Pulse Ox O2 Delivery O2 Flow Rate FiO2 01/08/19 21:24 98 Nasal Cannula 2.0 01/08/19 19:31 98.6 119 18 112/57 (75) 98.6 Lab Results Laboratory Tests Test 01/07/19 22:07 01/08/19 04:00 01/08/19 18:20 01/08/19 23:02 White Blood Count 15.7 x10^3/uL (4.0-11.0) 17.2 x10^3/uL (4.0-11.0) Red Blood Count 3.14 x10^6/uL (4.30-5.70) 2.67 x10^6/uL (4.30-5.70) Hemoglobin 10.6 g/dL (13.0-17.5) 9.1 g/dL (13.0-17.5) Hematocrit 31.5 % (39.0-53.0) 26.9 % (39.0-53.0) Mean Corpuscular Volume 100 fL (79-100) 101 fL (79-100) Mean Corpuscular Hemoglobin 34 pg (25-35) 34 pg (25-35) Mean Corpuscular Hemoglobin Concent 34 g/dL (31-37) 34 g/dL (31-37) Red Cell Distribution Width 12.4 % (11.5-14.5) 12.1 % (11.5-14.5) Platelet Count 219 x10^3/uL (140-400) 258 x10^3/uL (140-400) Neutrophils (%) (Auto) 86 % (31-73) 89 % (31-73) Lymphocytes (%) (Auto) 5 % (24-48) 4 % (24-48) Monocytes (%) (Auto) 7 % (0-9) 8 % (0-9) Eosinophils (%) (Auto) 1 % (0-3) 0 % (0-3) Basophils (%) (Auto) 0 % (0-3) 0 % (0-3) Neutrophils # (Auto) 13.5 x10^3/uL (1.8-7.7) 15.2 x10^3/uL (1.8-7.7) Lymphocytes # (Auto) 0.8 x10^3/uL (1.0-4.8) 0.6 x10^3/uL (1.0-4.8) Monocytes # (Auto) 1.1 x10^3/uL (0.0-1.1) 1.3 x10^3/uL (0.0-1.1) Eosinophils # (Auto) 0.1 x10^3/uL (0.0-0.7) 0.0 x10^3/uL (0.0-0.7) Basophils # (Auto) 0.1 x10^3/uL (0.0-0.2) 0.0 x10^3/uL (0.0-0.2) Segmented Neutrophils % 77 % (35-66) Band Neutrophils % 4 % (0-9) Lymphocytes % 8 % (24-48) Monocytes % 9 % (0-10) Basophils % 2 % (0-3) Toxic Vacuolation Slight Platelet Estimate Adequate (ADEQUATE) Platelet Clumps, EDTA Present Prothrombin Time 13.6 SEC (11.7-14.0) Prothromb Time International Ratio 1.1 (0.8-1.1) Activated Partial Thromboplast Time 31 SEC (24-38) Sodium Level 134 mmol/L (136-145) 135 mmol/L (136-145) Potassium Level 4.3 mmol/L (3.5-5.1) 5.1 mmol/L (3.5-5.1) Chloride Level 95 mmol/L (98-107) 97 mmol/L (98-107) Carbon Dioxide Level 30 mmol/L (21-32) 27 mmol/L (21-32) Anion Gap 9 (6-14) 11 (6-14) Blood Urea Nitrogen 8 mg/dL (8-26) 12 mg/dL (8-26) Creatinine 0.6 mg/dL (0.7-1.3) 1.4 mg/dL (0.7-1.3) Estimated GFR (Cockcroft-Gault) 131.7 49.5 BUN/Creatinine Ratio 13 (6-20) Glucose Level 118 mg/dL (70-99) 101 mg/dL (70-99) Calcium Level 8.7 mg/dL (8.5-10.1) 9.0 mg/dL (8.5-10.1) Total Bilirubin 0.4 mg/dL (0.2-1.0) Aspartate Amino Transf (AST/SGOT) 21 U/L (15-37) Alanine Aminotransferase (ALT/SGPT) 31 U/L (16-63) Alkaline Phosphatase 79 U/L (46-116) Total Protein 7.8 g/dL (6.4-8.2) Albumin 3.6 g/dL (3.4-5.0) Albumin/Globulin Ratio 0.9 (1.0-1.7) Urine Collection Type Unknown Urine Color Yellow Urine Clarity Clear Urine pH 6.5 Urine Specific [place] 1.010 Urine Protein Negative mg/dL (NEG-TRACE) Urine Glucose (UA) Negative mg/dL (NEG) Urine Ketones (Stick) Negative mg/dL (NEG) Urine Blood Negative (NEG) Urine Nitrite Negative (NEG) Urine Bilirubin Negative (NEG) Urine Urobilinogen Dipstick 0.2 mg/dL (0.2 mg/dL) Urine Leukocyte Esterase Negative (NEG) Urine RBC Occ /HPF (0-2) Urine WBC 0 /HPF (0-4) Urine Squamous Epithelial Cells Few /LPF Urine Transitional Epithelial Cells Few /LPF Urine Bacteria 0 /HPF (0-FEW) Urine Mucus Slight /LPF Urine Random Creatinine 37.1 mg/dL (Not Establ.) Glucose (Fingerstick) 93 mg/dL (70-99) Laboratory Tests Test 01/08/19 18:20 01/08/19 23:02 Urine Collection Type Unknown Urine Color Yellow Urine Clarity Clear Urine pH 6.5 Urine Specific [place] 1.010 Urine Protein Negative mg/dL (NEG-TRACE) Urine Glucose (UA) Negative mg/dL (NEG) Urine Ketones (Stick) Negative mg/dL (NEG) Urine Blood Negative (NEG) Urine Nitrite Negative (NEG) Urine Bilirubin Negative (NEG) Urine Urobilinogen Dipstick 0.2 mg/dL (0.2 mg/dL) Urine Leukocyte Esterase Negative (NEG) Urine RBC Occ /HPF (0-2) Urine WBC 0 /HPF (0-4) Urine Squamous Epithelial Cells Few /LPF Urine Transitional Epithelial Cells Few /LPF Urine Bacteria 0 /HPF (0-FEW) Urine Mucus Slight /LPF Urine Random Creatinine 37.1 mg/dL (Not Establ.) Glucose (Fingerstick) 93 mg/dL (70-99) Brief Hospital Course Mr. Nesbitt is a 73 old male admit with a fall and hip fracture hx EtOH abuse, was tachycardic, had tremor, CIWA protocol stated, ativan and banana bag given, CV consulted for 20 beat run of vtac in the AM, pt on tele, HR doc at about 110-120 most of the day plan echo and lytes management I am unsure of what triggered event, ELECTROTHERAPIST hourly rounding notes showed no problems, last RT note at 8pm was benign, RN note only describes new bradycardia, and pt found pulseless, pt had cardiac arrest overnight 11pm, intubated, CPR given, pt [id number] Discharge Information Condition at Discharge: / Scheduled Amlodipine Besylate (Amlodipine Besylate) 5 Mg Tablet, 5 MG PO DAILY for htn, (Reported) Entered as Reported by: LEBRON PLASENCIA RN on 01/08/191848 Last Action: New Order on 01/08/191848 by LEBRON PLASENCIA RN Escitalopram Oxalate (Escitalopram Oxalate) 10 Mg Tablet, 10 MG PO DAILY for ANTI-DEPRESSANT, #30 Ref 0 (Reported) Entered as Reported by: LEBRON PLASENCIA RN on 01/08/191848 Last Action: New Order on 01/08/191848 by LEBRON PLASENCIA RN Tiotropium Br/Olodaterol HCl (Stiolto Respimat Inhal Muir) 4 Gm Mist.inhal, 2 PUFF IH DAILY for copd, (Reported) Entered as Reported by: LEBRON PLASENCIA RN on 01/08/191849 Last Action: New Order on 01/08/191849 by SHARYN BURNHAM IRA W MD Jan 09, 2019 09:41
== END 2019-01-09 01:46 | disposition expired | DRG 535 ==
LOC: ER 21:40 → 6 SOUTH 23:02
PROVIDERS: ADMIT Internal Medicine; ATTEND Internal Medicine
PROC: 5A09357 Assistance with Respiratory Ventilation, Less than 24 Consecutive Hours, Continuous Positive Airway Pressure (ICD-10-PCS; 2019-01-08)
PROC: 5A12012 Performance of Cardiac Output, Single, Manual (ICD-10-PCS; principal; 2019-01-09)
PROC: 0BH17EZ Insertion of Endotracheal Airway into Trachea, Via Natural or Artificial Opening (ICD-10-PCS; 2019-01-09)
DX: S72.001A Fracture of unspecified part of neck of right femur, initial encounter for closed fracture (principal); N17.0 Acute kidney failure with tubular necrosis; I47.1 Supraventricular tachycardia; R65.10 Systemic inflammatory response syndrome (SIRS) of non-infectious origin without acute organ dysfunction; F10.231 Alcohol dependence with withdrawal delirium; Z68.1 Body mass index [BMI] 19.9 or less, adult; I10 Essential (primary) hypertension; D50.9 Iron deficiency anemia, unspecified; R63.6 Underweight; R09.02 Hypoxemia; J44.9 Chronic obstructive pulmonary disease, unspecified; W18.30XA Fall on same level, unspecified, initial encounter; Y93.89 Activity, other specified; Y99.8 Other external cause status; Z88.0 Allergy status to penicillin; Z91.018 Allergy to other foods; Y92.015 Private garage of single-family (private) house as the place of occurrence of the external cause
CPT/HCPCS: 36415; 71045; 73030; 73502; 76770; 80048; 80053; 81001; 82570; 82962; 84300; 85007; 85025; 85610; 85730; 93005; 94640; 94760; 96374; J0171; J2060; J2270; J2405; J3490; J7030; J7620; 99285-25; G0378